=== PATIENT | male | born 1975 ===

== ENCOUNTER 2016-08-23 08:14 | Observation (INO) | payer OTHER ==
[2016-08-21 14:21] VITALS: BMI 39.4
--- NOTE | 2016-08-23 08:42 | CP.SDSHP ---
Same Day Surgery H & P - History Proposed Procedure: B/L complex ulcer closure - Allergies Allergies: Allergies vancomycin Allergy (Verified 07/11/16 17:48) SWELLING Short Stay Discharge - Short Stay Discharge Admitting Diagnosis/Reason for Visit: OTHER SPECIFIED DIABETES MELLITUS WITH FOOT ULCER Disposition: HOME/ ROUTINE
--- NOTE | 2016-08-23 08:43 | CP.PCM.PN ---
Subjective - Date & Time of Evaluation Date of Evaluation: 08/23/16 Time of Evaluation: 08:42 - Subjective Subjective: 41 y/o male presents to [facility] for bilateral complex ulcer closure of lower extremity wounds. Patient confirms his NPO status and has not eaten or drank anything past midnight yesterday. Objective - Constitutional Appears: Well, Non-toxic, No Acute Distress - Extremities Exam Additional comments: bilateral dressings are clean, dry and intact - Neurological Exam Neurological Exam: Alert, Awake, Oriented x3 - Psychiatric Exam Psychiatric exam: Normal Affect, Normal Mood
[2016-08-23] MEDS ORDERED: Midazolam 2 MG/2 ML VIAL ONE (08:50)
[2016-08-23] MEDS ORDERED: Propofol 10 mg/ml Inj (20 ML) ONE (08:50)
[2016-08-23] MEDS ORDERED: Bupivacaine 0.5% Inj(30mL) ONE (08:57)
[2016-08-23] MEDS ORDERED: Lidocaine 1% Inj (20ml) ONE (08:57)
[2016-08-23 09:00] VITALS: RESP 20
[2016-08-23] MEDS ORDERED: ceFAZolin IV 1 gm in Dextrose 2 GM/100 ML BAG IVPB ONE (09:25)
--- NOTE | 2016-08-23 11:44 | PCM.SURG1 ---
Surgeon's Initial Post Op Note - Surgeon's Notes Surgeon: Dr. Chao Security Business Analyst: Dr. Hickey PGY-2, Dr. Palm PGY-1 Type of Anesthesia: IV Sedation, Local Anesthesia Administered By: Dr. Iraheta Pre-Operative Diagnosis: bilateral foot chronic nonhealing ulcerations Operative Findings: see dictation. 15 mL each foot 1:1 mix 1%lidocaine plain, 0.5%marcaine plain. 10mL 0.5%marcaine plain left foot. 2-0 vicryl, 3-0 vicrly , 4-0 vicryl, 2-0 prolene, 3-0 prolene Post-Operative Diagnosis: right foot nonhealing ulceration, left foot infected ulceration Operation Performed: bilateral foot debridement of ulceration, resection of bone , complex skin closure Specimen/Specimens Removed: bone and soft tissue Estimated Blood Loss: EBL {In ML}: 100 Blood Products Given: N/A Drains Used: No Drains Post-Op Condition: Good Date of Surgery/Procedure: 08/23/16 Time of Surgery/Procedure: 10:00
[2016-08-23] MEDS ORDERED: Oxycodone/Acetaminophen 5/325 mg Tab PO PRN (11:46)
[2016-08-23] MEDS ORDERED: HYDROmorphone 0.5 mg/0.5 ml ISec IVP PRN (12:02)
[2016-08-23] MEDS ORDERED: HYDROmorphone 0.5 mg/0.5 ml ISec IVP STA (12:45)
[2016-08-23] MEDS: Piperacill/Tazo 3.375gm in Dex 3.375 GM/50 ML BAG IVPB SCH ×2 (14:51→20:30)
--- NOTE | 2016-08-23 15:58 | RAD ---
PROCEDURE: Bilateral Feet Radiographs. HISTORY: s/p bilateral foot surgery COMPARISON: None. FINDINGS: BONES: Right Foot: Status post resection of the 2nd and 3rd digits. Left Foot: Postoperative changes 1st ray, 2nd digit. Post osteotomy changes 3rd metatarsal phalangeal joint. SOFT TISSUES: Right Foot: No focal/ suspicious abnormalities. Left Foot: Diffuse soft tissue swelling, edema. Either ulceration or postoperative changes at the surgical site. OTHER FINDINGS: None. IMPRESSION: Postoperative changes are extensive bilaterally. No radiographic findings of acute osteomyelitis. Soft tissue swelling left foot.
[2016-08-23] MEDS: (Novolog) Insulin Aspart, Recombinant 100 u/ml 10 ml vial SC SCH (17:38)
[2016-08-23] MEDS: Oxycodone/Acetaminophen 5/325 mg Tab PO PRN ×2 (17:38→22:40)
[2016-08-23] MEDS: Insulin Detemir 100 units/ml Vial (Levemir) SC SCH ×2 (22:22→22:40)
[2016-08-24] MEDS: Piperacill/Tazo 3.375gm in Dex 3.375 GM/50 ML BAG IVPB SCH ×2 (02:35→08:51)
--- NOTE | 2016-08-24 06:55 | CP.PCM.DIS ---
Provider - Provider Date of Admission: 08/23/16 11:46 Attending physician: Joseph Chao DPM Consults: Dr. Chao-podiatry Time Spent in preparation of Discharge (in minutes): 30 Diagnosis - Discharge Diagnosis (1) Abscess and cellulitis Status: Acute Hospital Course - Lab Results Lab Results: Micro Results 08/23/16 Unknown Foot - Left Gram Stain - Final Most Recent Lab Values POC Glucose (mg/dL) 308 mg/dL (65-110) H 08/24/16 06:07 - Hospital Course Hospital Course: 41 y/o male went to OR on 08/23/[address] Chao for bilateral foot surgery. Patient had debridement of ulceration and resection of bone with complex repair of skin structures on the right foot, as well as incision and drainage, ulcer debridement with resection of bone on the left foot. Patient was then admitted for 24 hour observation and IV abx due to localized abscess and cellulitis of left foot. patient stable, in no acute distress, tolerated procedure well and received Zosyn and pain meds on the floor. Patient stable for discharge and is to follow up as outpatient with Dr. Chao. Patient given pain meds and PO abx for discharge. - Date & Time of H&P Date of H&P: 08/24/16 Time of H&P: 06:55 Discharge Plan - Follow Up Plan Condition: GOOD Disposition: HOME/ ROUTINE Instructions: Cellulitis (DC), Cellulitis (GEN), Abscess (GEN) Additional Instructions: please keep dressing clean,dry,intact to both feet please follow up [facility] Chao upon discharge in wound care center Referrals: Joseph Chao DPM [Staff Provider] -
[2016-08-24] MEDS: (Novolog) Insulin Aspart, Recombinant 100 u/ml 10 ml vial SC SCH (08:00)
[2016-08-24 08:27] VITALS: BP 144/75; PULSE 57; TEMP 98.6; O2SAT 95
--- NOTE | 2016-08-27 16:23 | OP ---
PROCEDURE DATE: 08/23/2016 PREOPERATIVE DIAGNOSIS: Bilateral foot chronic, nonhealing ulcerations. POSTOPERATIVE DIAGNOSIS: Bilateral foot chronic, nonhealing ulcerations. SURGEON: Joseph Mckeon DPM TRUSS MAKER: 1. Dr. Hickey, PGY-2. 2. Dr. Palm, PGY-1. TYPE OF ANESTHESIA: IV sedation with local. HAIRSPRING VIBRATOR: Deborah Velásquez MD. NAME OF PROCEDURE: 1. Right debridement of ulcer with resection of bone, complex skin closure. 2. Left foot debridement of ulcer with resection of bone and skin closure. INDICATIONS: The patient is a 41-year-old male with the above diagnoses. The patient has exhausted all conservative, treatment at this time now requests surgical intervention. The patient signed a consent after careful explanation of risk, benefits, complications, and alternative for surgical procedure. No guarantees were given nor implied. PREPARATION: The patient was brought into the operating room, placed on the operating room table in a supine position. A time-out was performed for identification of the correct patient and procedure. After induction of IV sedation, the patient received a total of 50 mL of 1:1 mixture of 1% lidocaine plain and 0.5% Marcaine plain in a local block type fashion at the each foot. One local anesthesia was achieved, both feet were then prepped and draped in a normal sterile manner and the procedure began. DESCRIPTION OF PROCEDURE: #1. Right foot debridement of ulcer with resection of bone and skin closure. Attention was then directed to the plantar submetatarsal two where a well-circumscribed ulceration measuring 3 cm x 2 cm x 0.3 cm with a fibrotic base and a hyperkeratotic border was noted. A gloria-shaped incision extending plantarly and proximally to the ulceration site and extending distally to the ulceration site was made using #15 blade. The incision was then extended through the subcutaneous layer down to the level of bone. Using a sagittal saw, the head of the metatarsal was resected and passed off of sent to pathology. Using a bone graft, the edges were smoothed down. All necrotic and nonviable tissue was then excisionally debrided from the surgical site. The wound was then copiously flushed with sterile saline. The subcutaneous tissue was then reapproximated with 2-0 Vicryl and 3-0 Vicryl and the skin was reapproximated with 2-0 Prolene. The surgical site was then dressed with Adaptic, 4X4 gauze, Kerlix, and Coban. #2. Attention was then directed to the left foot plantar second metatarsal where a well-circumscribed 3 cm x 3 cm x 0.5 cm ulceration was noted. At this time, it was noted that about 5 mL of purulent drainage was expressed on the ulceration site. Using #15 blade, a dorsal linear incision in the second interspace was made and the incision was then extended down to the subcutaneous layer down to level of the bone. The incision was then extended plantarly and a gloria-shaped incision around the ulceration site. The hemostat was then probed from the dorsal incision tunneling down to the plantar ulcer. All necrotic and nonviable tissue was excisionally debrided at this time. Using a sagittal saw, the second digit proximal phalanx was resected and sent to pathology. The dorsal and plantar incision site were then irrigated using 3 L of saline using a pulse lavage to copiously flush the wound. The wound was then closed with 2-0 Prolene. The middle of the surgical site was left open to allow for drainage. The site was then dressed with Adaptic, 4x4 gauze, Kerlix and Coban. POSTOPERATIVE CONDITION: The patient tolerated the anesthesia and procedure well and was escorted to the recovery room with vital signs stable and neurovascular status intact to both feet. The patient has to be partial weightbearing to both lower extremities and podiatry will continue to follow the patient while and will follow with Dr. Mckeon upon discharge. Deidre Hickey DPM
== END 2016-08-24 13:09 | disposition home or self-care (01) ==
LOC: C.SDS 08:14 → C.9S 11:46 → C.6T 13:13
PROVIDERS: ADMIT Podiatrist Foot & Ankle Surgery; ATTEND Podiatrist Foot & Ankle Surgery
DX: N13.2 Hydronephrosis with renal and ureteral calculous obstruction (principal); Z87.442 Personal history of urinary calculi
CPT/HCPCS: 52330; 73620; 82948; 87070; 87181; 88305; 88311; 96365; 96366; 96375; 96376; G0378; J0690; J1170; J1642; J2250; J2270; J2543; J2704; J3010; J7060